=== PATIENT | male | born 1945 | race Caucasian/White ===

== ENCOUNTER 2022-07-03 09:13 | Emergency (ER) | payer OTHER ==
[2022-07-03] MEDS ORDERED: ELIQUIS 5 MG TAB5 MG PO (13:24)
== END 2022-07-03 14:20 | disposition home or self-care (01) ==
LOC: ER1 09:13
DX: I82.811 Embolism and thrombosis of superficial veins of right lower extremity (principal); N18.9 Chronic kidney disease, unspecified; Z91.040 Latex allergy status
CPT/HCPCS: 73564; 73590; 93971; 99284